=== PATIENT | female | born 1940 | race Caucasian/White ===

== ENCOUNTER → 2017-11-09 | Outpatient (CLI) | payer OTHER ==
--- NOTE | 2017-11-09 19:38 | CT ---
EXAMINATION TYPE: CT abdomen pelvis w con DATE OF EXAM: 11/09/2017 COMPARISON: 08/21/2016 HISTORY: LUQ PAIN. CT DLP: 1224 mGycm Automated exposure control for dose reduction was used. TECHNIQUE: Helical acquisition of images was performed from the lung bases through the pelvis. CONTRAST: Performed with Oral Contrast and with IV Contrast, patient injected with 80 mL of Visipaque 320. FINDINGS: Lung bases are clear of consolidation. There are clips from cholecystectomy. There is interposition o f the hepatic flexure of the colon. There is deformity of the stomach related to previous bariatric s urgery. There is no evidence of a splenic mass. Stomach is not dilated. There are surgical clips arou nd the stomach. There is no evidence of a pancreatic mass. There is renal cortical thinning. There is no hydronephrosis. There is a 1 cm calculus in the posterior left renal pelvis. There is a similar c alculus in the posterior right kidney. There are smaller other bilateral renal calculi. There is no r etroperitoneal adenopathy. There is no hydronephrosis. Abdominal aorta is atheromatous. There are keanu gical clips on the anterior abdominal wall. There is no evidence of an abdominal wall hernia. I see n o sign of a bowel obstruction. Oral contrast reaches the right colon. There appears to be some small bowel that is not opacified with oral contrast and this could be due to bypass surgery and gastrojeju nostomy. There is no ascites. There is no sign of free air. There is thoracolumbar kyphotic curvature with severe compression deformity of T12 vertebra. There is mild compression deformity of multiple l umbar vertebra. Abdominal aorta is atheromatous. Bladder distends smoothly. There is no sign of a pel tawana mass. There is osteopenia. There is right hip surgery. There is no free fluid in the pelvis. There is a loop of nonopacified small bowel that measures 3.2 cm. There are numerous surgical clips i n this area. IMPRESSION: THERE IS DECREASED FECAL MATERIAL COMPARED TO OLD EXAM. THERE IS A MILDLY DISTENDED SMALL BOWEL LOOP THAT MEASURES 3.2 CM AND IS NOT CHANGED COMPARED TO OLD EXAM AND PROBABLY DUE TO LOCALIZED ILEUS. EXT ENSIVE SURGERY. NONOBSTRUCTING BILATERAL RENAL CALCULI. NO EVIDENCE OF A BOWEL OBSTRUCTION. MULTIPLE LUMBAR AND THORACIC COMPRESSION FRACTURES.
== END | disposition home or self-care (01) ==
LOC: RADCTMAIN 16:38
DX: N20.0 Calculus of kidney (principal); K63.89 Other specified diseases of intestine; E75.5 Other lipid storage disorders; E78.9 Disorder of lipoprotein metabolism, unspecified; E55.9 Vitamin D deficiency, unspecified; D53.8 Other specified nutritional anemias; R10.13 Epigastric pain; R94.4 Abnormal results of kidney function studies; Z98.84 Bariatric surgery status
CPT/HCPCS: 82565; 84520; 74177; 36415; Q9967

== ENCOUNTER 2021-03-06 11:47 | Emergency (ER) | payer OTHER ==
[2021-03-06 11:54] VITALS: BP 157/73; PULSE 61; RESP 16; TEMP 98
[2021-03-06] MEDS ORDERED: TOPICAL SKIN ADHESIVE 1 EACH AMP TOPICAL ONE (12:36)
--- NOTE | 2021-03-06 12:36 | ED ---
General Adult HPI - General Chief complaint: Abdominal Pain Stated complaint: bleeding from navel Time Seen by Provider: 03/06/21 12:13 Source: patient Mode of arrival: wheelchair Limitations: no limitations - History of Present Illness Initial comments: Crystal is an 80yo F reasons to the emergency department today for evaluation of bleeding from the navel. Patient has a history of multiple previous abdominal surgeries, multiple scars, abdominal mesh under the umbilicus. Patient reports that this morning she noted some bleeding from the umbilicus. She applied gauze and came to the ER for further evaluation. Patient also notes she is here that she has a skin tear on her left london that has been there for a few days and not healing. has been cleaning out with peroxide. - Related Data Home Medications Medication Instructions Recorded Confirmed Pantoprazole Sodium 40 mg PO BID 02/09/14 03/06/21 HYDROcodone/APAP 10-325MG [[place] 1 tab PO BID 03/06/21 03/06/21 10-325] Mirabegron [Myrbetriq] 50 mg PO DAILY 03/06/21 03/06/21 Sertraline [Zoloft] 50 mg PO DAILY 03/06/21 03/06/21 Solifenacin Succinate [Vesicare] 5 mg PO DAILY 03/06/21 03/06/21 calcitrioL [Calcitriol] 0.5 mcg PO DAILY 03/06/21 03/06/21 traZODone HCL [Desyrel] 100 mg PO HS 03/06/21 03/06/21 Allergies Allergy/AdvReac Type Severity Reaction Status Date / Time No Known Allergies Allergy Verified 03/06/21 13:16 Review of Systems ROS Statement: Those systems with pertinent positive or pertinent negative responses have been documented in the HPI. ROS Other: All systems not noted in ROS Statement are negative. Past Medical History Past Medical History: Cancer, CVA/TIA, Eye Disorder, GERD/Reflux, Osteoarthritis (OA) Additional Past Medical History / Comment(s): C. difficile colitis, last treated August 2013. Last echo showed an ejection fraction of 50-55% with mild aortic stenosis. Previous morbid obesity with with previous bariatric surger ies. History of Any Multi-Drug Resistant Organisms: C-DIFF Past Surgical History: Appendectomy, Bariatric Surgery, Cholecystectomy, Heart Catheterization, Hernia Repair, Orthopedic Surgery, Tonsillectomy, Tubal Ligation Additional Past Surgical History / Comment(s): Bilateral cataract removal and lens implant, EGD with biopsy for gastritis and duodenitis, removal of melanoma from the chest. Past Anesthesia/Blood Transfusion Reactions: No Reported Reaction Past Psychological History: Depression Past Alcohol Use History: None Reported Past Drug Use History: None Reported - Past Family History Father Family Medical History: Liver Disease (Father at age 62 from consultations from alcoholism.) Mother Family Medical History: Coronary Artery Disease (CAD) (Mother at age 78 from coronary artery disease.) Daughter(s) Family Medical History: No Reported History (Patient has 1 son and 1 daughter that are both healthy.) Sister(s) Family Medical History: No Reported History (Patient had total of 9 sisters and one stepbrother. She denies diabetes, strokes in the family.), Cancer ( from melanoma.) General Exam - General Exam Comments Initial Comments: Physical Exam GENERAL: Very thin, frail female HENT: Normocephalic, Atraumatic. EYES: PERRL, EOMI PULMONARY: Unlabored respirations. CARDIOVASCULAR: Warm well perfused extremities ABDOMEN: Multiple scars, no abdominal fat Hernia mesh palpable through thin skin Small tear at the scar at the superior surface of the umbilicus Skin tear at the 6 o'clock position of the umbilicus seems to be from patient pulling on abdominal skin attempting to view other site of bleeding SKIN: Skin tear to left london, 2cm in diameter, no active bleeding, well healing : Deferred NEUROLOGIC: Alert and oriented Normal speech MUSCULOSKELETAL: Moving all extremities with no apparent injury PSYCHIATRIC: No SI/HI Limitations: no limitations Course Vital Signs 03/06/21 11:50 Temperature 98.0 F Pulse Rate 61 Respiratory 16 Rate Blood Pressure 157/73 O2 Sat by Pulse 96 Oximetry Medical Decision Making - Medical Decision Making The patient was seen and evaluated history is obtained from patient Patient has very thin skin with multiple scars, she has a small dehiscence less than 7 mm in length and very superficial of the scar the 12 o'clock position of the umbilicus, approximately 3 mm skin tear at the 6 o'clock position, no active bleeding is noted from either The wounds were cleaned and sealed with skin glue Patient was advised that she needs to discuss with her primary care referral to wound care as she has very thin skin, no subcutaneous fat, and history of poor wound healing Patient has been expressed understanding and are agreeable with plan for discharge home at this time Disposition Clinical Impression: Skin tear Disposition: HOME SELF-CARE Condition: Stable Additional Instructions: Keep the area clean and dry Follow up with primary care doctor for referral to wound care Is patient prescribed a controlled substance at d/c from ED?: No Referrals: Alex Cramer MD [Primary Care Provider] - 1-2 days
== END 2021-03-06 13:30 | disposition home or self-care (01) ==
LOC: EC 11:47
DX: S31.115A Laceration without foreign body of abdominal wall, periumbilic region without penetration into peritoneal cavity, initial encounter (principal); K21.9 Gastro-esophageal reflux disease without esophagitis; R54 Age-related physical debility; Z79.899 Other long term (current) drug therapy; Z90.49 Acquired absence of other specified parts of digestive tract; Z86.73 Personal history of transient ischemic attack (TIA), and cerebral infarction without residual deficits; X58.XXXA Exposure to other specified factors, initial encounter
CPT/HCPCS: 99283

== ENCOUNTER 2021-03-27 12:21 | Emergency (ER) | payer OTHER, MEDICARE ==
[2021-03-27 12:42] VITALS: RESP 18
[2021-03-27] MEDS ORDERED: PANTOPRAZOLE 40 MG/10 ML VIAL IVP STA (13:41)
[2021-03-27] MEDS ORDERED: SODIUM CHLORIDE 0.9% 1,000 ML IV STA (13:41)
[2021-03-27] MEDS ORDERED: MORPHINE SULFATE 4 MG/ML SYRINGE IV STA (13:41)
--- NOTE | 2021-03-27 13:55 | ED ---
General Adult HPI - General Chief complaint: Back Pain/Injury Stated complaint: Fall/leg/back pain Time Seen by Provider: 03/27/21 12:46 Source: patient, RN notes reviewed Mode of arrival: wheelchair Limitations: physical limitation - History of Present Illness Initial comments: Patient is a pleasant 80-year-old female presenting to the emergency department following a fall. Incident occurred around 5 or 6 days ago. Patient was switching her Walker's when she got up and fell down. Patient mostly complains of left knee discomfort. Patient is ambulatory with pain. No history of chronic knee problems. Patient also is having some discomfort of her abdomen that seems to be radiating towards the right and back. Abdominal discomfort was not present on first however has been getting worse over the past couple of days. No head injury or loss of consciousness. - Related Data Home Medications Medication Instructions Recorded Confirmed Pantoprazole Sodium 40 mg PO BID 02/09/14 03/27/21 HYDROcodone/APAP 10-325MG [[place] 1 tab PO BID 03/06/21 03/27/21 10-325] Mirabegron [Myrbetriq] 50 mg PO DAILY 03/06/21 03/27/21 Sertraline [Zoloft] 50 mg PO DAILY 03/06/21 03/27/21 Solifenacin Succinate [Vesicare] 5 mg PO DAILY 03/06/21 03/27/21 calcitrioL [Calcitriol] 0.5 mcg PO DAILY 03/06/21 03/27/21 traZODone HCL [Desyrel] 100 mg PO HS 03/06/21 03/27/21 Dorzolamide-Timol 2.23%/0.68% 1 drop BOTH EYES BID 03/27/21 03/27/21 [Cosopt] Ofloxacin 0.3% Ophth Soln [Ocuflox 1 drops BOTH EYES BID 03/27/21 03/27/21 Ophth Soln] cycloSPORINE [Restasis] 1 drop BOTH EYES BID 03/27/21 03/27/21 Previous Rx's Medication Instructions Recorded Nitrofurantoin Monohyd/M-Cryst 100 mg PO Q12HR #20 cap 03/27/21 [Macrobid] Allergies Allergy/AdvReac Type Severity Reaction Status Date / Time No Known Allergies Allergy Verified 03/27/21 13:57 Review of Systems ROS Statement: Those systems with pertinent positive or pertinent negative responses have been documented in the HPI. ROS Other: All systems not noted in ROS Statement are negative. Constitutional: Denies: fever Eyes: Denies: eye pain ENT: Denies: ear pain Respiratory: Denies: cough Cardiovascular: Denies: chest pain Endocrine: Denies: fatigue Gastrointestinal: Reports: as per HPI Genitourinary: Denies: dysuria Musculoskeletal: Reports: as per HPI Skin: Denies: rash Neurological: Denies: weakness Past Medical History Past Medical History: Cancer, CVA/TIA, Eye Disorder, GERD/Reflux, Osteoarthritis (OA) Additional Past Medical History / Comment(s): C. difficile colitis, last treated August 2013. Last echo showed an ejection fraction of 50-55% with mild aortic stenosis. Previous morbid obesity with with previous bariatric surgeries. History of Any Multi-Drug Resistant Organisms: C-DIFF Past Surgical History: Appendectomy, Bariatric Surgery, Cholecystectomy, Heart Catheterization, Hernia Repair, Orthopedic Surgery, Tonsillectomy, Tubal Ligation Additional Past Surgical History / Comment(s): Bilateral cataract removal and lens implant, EGD with biopsy for gastritis and duodenitis, removal of melanoma from the chest. Past Anesthesia/Blood Transfusion Reactions: No Reported Reaction Past Psychological History: Depression Smoking Status: Never smoker Past Alcohol Use History: None Reported Past Drug Use History: None Reported - Past Family History Father Family Medical History: Liver Disease (Father at age 62 from consultations from alcoholism.) Mother Family Medical History: Coronary Artery Disease (CAD) (Mother at age 78 from coronary artery disease.) Daughter(s) Family Medical History: No Reported History (Patient has 1 son and 1 daughter that are both healthy.) Sister(s) Family Medical History: No Reported History (Patient had total of 9 sisters and one stepbrother. She denies diabetes, strokes in the family.), Cancer ( from melanoma.) General Exam Limitations: physical limitation General appearance: alert, in no apparent distress Head exam: Present: atraumatic Eye exam: Present: normal appearance Neck exam: Present: normal inspection Respiratory exam: Present: normal lung sounds bilaterally Cardiovascular Exam: Present: regular rate, normal rhythm GI/Abdominal exam: Present: soft, tenderness (Mild diffuse tenderness). Absent: distended Extremities exam: Present: tenderness (Left knee with tenderness near the tibial plateau. No significant swelling. Distally the extremity is neurovascular intact.) Back exam: Present: normal inspection. Absent: tenderness, vertebral tenderness Neurological exam: Present: alert. Absent: motor sensory deficit Psychiatric exam: Present: normal affect, normal mood Skin exam: Present: normal color Course Vital Signs 03/27/21 03/27/21 03/27/21 12:39 14:00 15:00 Temperature 98.3 F Pulse Rate 68 57 L 56 L Respiratory 18 18 18 Rate Blood Pressure 143/79 145/68 145/68 O2 Sat by Pulse 99 98 99 Oximetry EKG Findings - EKG Comments: EKG Findings:: Size pericardial with a rate of 59. ME 188. QRS 112. QT 4:30. QTC 425. Left axis. Left anterior fascicular block. No acute ST change. Medical Decision Making - Medical Decision Making Patient reevaluated and resting comfortably in bed. Patient and family updated on results and need for follow-up. - Lab Data Result diagrams: 03/27/21 13:59 03/27/21 13:59 Lab Results 03/27/21 03/27/21 03/27/21 Range/Units 13:59 13:59 13:59 WBC 6.1 (3.8-10.6) k/uL RBC 2.92 L (3.80-5.40) m/uL Hgb 10.0 L (11.4-16.0) gm/dL Hct 30.7 L (34.0-46.0) % MCV 105.0 H (80.0-100.0) fL MCH 34.2 (25.0-35.0) pg MCHC 32.6 (31.0-37.0) g/dL RDW 14.6 (11.5-15.5) % Plt Count 151 (150-450) k/uL MPV 7.4 Neutrophils % 63 % Lymphocytes % 25 % Monocytes % 8 % Eosinophils % 2 % Basophils % 0 % Neutrophils # 3.8 (1.3-7.7) k/uL Lymphocytes # 1.5 (1.0-4.8) k/uL Monocytes # 0.5 (0-1.0) k/uL Eosinophils # 0.1 (0-0.7) k/uL Basophils # 0.0 (0-0.2) k/uL Hypochromasia Slight Macrocytosis Moderate PT 9.9 (9.0-12.0) sec INR 0.9 (<1.2) APTT 23.9 (22.0-30.0) sec Sodium (137-145) mmol/L Potassium (3.5-5.1) mmol/L Chloride (98-107) mmol/L Carbon Dioxide (22-30) mmol/L Anion Gap mmol/L BUN (7-17) mg/dL Creatinine (0.52-1.04) mg/dL Est GFR (CKD-EPI)AfAm (>60 ml/min/1.73 sqM) Est GFR (CKD-EPI)NonAf (>60 ml/min/1.73 sqM) Glucose (74-99) mg/dL Calcium (8.4-10.2) mg/dL Total Bilirubin (0.2-1.3) mg/dL AST (14-36) U/L ALT (4-34) U/L Alkaline Phosphatase (38-126) U/L Total Protein (6.3-8.2) g/dL Albumin (3.5-5.0) g/dL Amylase (30-110) U/L Lipase (23-300) U/L Urine Color Yellow Urine Appearance Cloudy H (Clear) Urine pH 5.5 (5.0-8.0) Ur Specific [place] 1.023 (1.001-1.035) Urine Protein 1+ H (Negative) Urine Glucose (UA) Negative (Negative) Urine Ketones Negative (Negative) Urine Blood Trace H (Negative) Urine Nitrite Positive H (Negative) Urine Bilirubin Negative (Negative) Urine Urobilinogen <2.0 (<2.0) mg/dL Ur Leukocyte Esterase Large H (Negative) Urine RBC 8 H (0-5) /hpf Urine WBC >182 H (0-5) /hpf Urine WBC Clumps Few H (None) /hpf Ur Squamous Epith Cells 1 (0-4) /hpf Urine Bacteria Few H (None) /hpf Hyaline Casts 1 (0-2) /lpf Urine Mucus Rare H (None) /hpf 03/27/21 Range/Units 13:59 WBC (3.8-10.6) k/uL RBC (3.80-5.40) m/uL Hgb (11.4-16.0) gm/dL Hct (34.0-46.0) % MCV (80.0-100.0) fL MCH (25.0-35.0) pg MCHC (31.0-37.0) g/dL RDW (11.5-15.5) % Plt Count (150-450) k/uL MPV Neutrophils % % Lymphocytes % % Monocytes % % Eosinophils % % Basophils % % Neutrophils # (1.3-7.7) k/uL Lymphocytes # (1.0-4.8) k/uL Monocytes # (0-1.0) k/uL Eosinophils # (0-0.7) k/uL Basophils # (0-0.2) k/uL Hypochromasia Macrocytosis PT (9.0-12.0) sec INR (<1.2) APTT (22.0-30.0) sec Sodium 138 (137-145) mmol/L Potassium 4.3 (3.5-5.1) mmol/L Chloride 110 H (98-107) mmol/L Carbon Dioxide 21 L (22-30) mmol/L Anion Gap 7 mmol/L BUN 27 H (7-17) mg/dL Creatinine 1.11 H (0.52-1.04) mg/dL Est GFR (CKD-EPI)AfAm 54 (>60 ml/min/1.73 sqM) Est GFR (CKD-EPI)NonAf 47 (>60 ml/min/1.73 sqM) Glucose 91 (74-99) mg/dL Calcium 8.5 (8.4-10.2) mg/dL Total Bilirubin 0.1 L (0.2-1.3) mg/dL AST 26 (14-36) U/L ALT 10 (4-34) U/L Alkaline Phosphatase 96 (38-126) U/L Total Protein 5.8 L (6.3-8.2) g/dL Albumin 3.2 L (3.5-5.0) g/dL Amylase 87 (30-110) U/L Lipase 164 (23-300) U/L Urine Color Urine Appearance (Clear) Urine pH (5.0-8.0) Ur Specific [place] (1.001-1.035) Urine Protein (Negative) Urine Glucose (UA) (Negative) Urine Ketones (Negative) Urine Blood (Negative) Urine Nitrite (Negative) Urine Bilirubin (Negative) Urine Urobilinogen (<2.0) mg/dL Ur Leukocyte Esterase (Negative) Urine RBC (0-5) /hpf Urine WBC (0-5) /hpf Urine WBC Clumps (None) /hpf Ur Squamous Epith Cells (0-4) /hpf Urine Bacteria (None) /hpf Hyaline Casts (0-2) /lpf Urine Mucus (None) /hpf - Radiology Data Radiology results: report reviewed (Computed tomography scan does not show acute manic abnormality), image reviewed (The x-ray shows no acute traumatic injury. Previous trauma.) Disposition Clinical Impression: Fall, UTI (urinary tract infection) Disposition: HOME SELF-CARE Condition: Stable Instructions (If sedation given, give patient instructions): Fall Prevention for Older Adults (ED), Urinary Tract Infection in Women (ED), Knee Pain (ED) Additional Instructions: Prescription for antibiotics has been sent to pharmacy. Use your knee brace as needed. Return for increased pain, weakness, fevers, vomiting, worsening symptoms or any other concerns. Prescriptions: Nitrofurantoin Monohyd/M-Cryst [Macrobid] 100 mg PO Q12HR #20 cap Is patient prescribed a controlled substance at d/c from ED?: No Referrals: Alex Cramer MD [Primary Care Provider] - 1-2 days Time of Disposition: 15:58
[2021-03-27 14:10] LABS: Basophils % (A) 0 %; Eosinophils # (A) 0.1 k/uL (0-0.7); Eosinophils % (A) 2 %; HCT 30.7 % (34.0-46.0); Hypochromasia Slight; Lymphocytes # (A) 1.5 k/uL (1.0-4.8); Lymphocytes % (A) 25 %; MCH 34.2 pg (25.0-35.0); MCHC 32.6 g/dL (31.0-37.0); Macrocytosis Moderate; Mean Platelet Volume 7.4; Monocytes # (A) 0.5 k/uL (0-1.0); Monocytes % (A) 8 %; Neutrophils # (A) 3.8 k/uL (1.3-7.7); Neutrophils % (A) 63 %; Platelet Count 151 k/uL (150-450); RBC 2.92 m/uL (3.80-5.40); RDW 14.6 % (11.5-15.5); WBC 6.1 k/uL (3.8-10.6)
[2021-03-27 14:19] LABS: Albumin 3.2 g/dL (3.5-5.0); Calcium 8.5 mg/dL (8.4-10.2); Potassium 4.3 mmol/L (3.5-5.1); Total Bilirubin 0.1 mg/dL (0.2-1.3); Total Protein 5.8 g/dL (6.3-8.2)
[2021-03-27 14:23] LABS: INR 0.9 (<1.2); Partial Thromboplastin Time 23.9 sec (22.0-30.0); Prothrombin Time 9.9 sec (9.0-12.0)
--- NOTE | 2021-03-27 14:46 | XR ---
Left knee HISTORY: Trauma 5days prior and pain 3 views the left knee, comparison prior exam 10/12/2010 Bone mineralization is reduced which may limit sensitivity. There is overlying artifact. Dense vascul ar calcifications are present. Alignment is maintained. Patient shows postop change to the distal fem ur, lateral bracket and associated screws. Osteophytic change noted in the left knee, there is margin al spurring, joint space loss in the medial compartment. Cortical irregularity of the medial metaphys is of the distal left femur is likely due to remote trauma. Spurring and joint space loss also presen t at the patellofemoral joint. No evident joint effusion. Distortion of the distal metaphysis seen on the lateral exam is likely due to remote trauma. Small staple questioned over the patella on the lat eral exam may be due to overlying wrap. IMPRESSION: Findings thought likely to be due to remote trauma. Posterior arthritis and osteoporosis. Peripheral vascular occlusive disease..
[2021-03-27 14:51] LABS: Appearance,Urine Cloudy (Clear); Bacteria,Urine Few /hpf; Bilirubin,Urine Negative (Negative); Blood,Urine Trace (Negative); Color,Urine Yellow; Glucose,Urine (UA) Negative (Negative); Hyaline Casts,Urine 1 /lpf (0-2); Ketones,Urine Negative (Negative); Leukocyte Esterase,Urine Large (Negative); Mucus,Urine Rare /hpf; Nitrite,Urine Positive (Negative); PH, Urine 5.5 (5.0-8.0); Protein,Urine 1+ (Negative); RBC,Urine 8 /hpf (0-5); Specific Gravity,Urine 1.023 (1.001-1.035); Squamous Epithelial Cell,Urine 1 /hpf (0-4); Urobilinogen,Urine <2.0 mg/dL (<2.0); WBC,Urine >182 /hpf (0-5)
--- NOTE | 2021-03-27 15:21 | CT ---
EXAMINATION TYPE: CT abdomen pelvis w con DATE OF EXAM: 03/27/2021 COMPARISON: CT 11/09/2017 HISTORY: contusions post fall [address] DLP: 547.3 mGycm Automated exposure control for dose reduction was used. TECHNIQUE: Helical acquisition of images from the lung bases through the pelvis have been completed. CONTRAST: Performed without Oral Contrast and with IV Contrast, patient injected with 80 mL of Isovue 300. FINDINGS: Metallic density present at the mitral annulus level, there are coronary artery calcificati ons. Postop changes are again noted within the abdomen. Multiple surgical clips are present along the anterior abdominal wall and within the abdomen, at the level the stomach. LUNG BASES: There is a small right pleural effusion greater than left, some associated atelectasis, r ight hemidiaphragm shows eventration change as on prior. AORTA: No significant abnormality is appreciated. LIVER/GB: Patient is post cholecystectomy, there is prominent intrahepatic biliary ducts which were n oted on prior Colonic interposition noted anterior to the liver similar to prior. PANCREAS: No significant abnormality is seen. SPLEEN: No significant abnormality is seen. ADRENALS: No significant abnormality is seen. KIDNEYS: Previously noted left renal pelvic calcification is noted measuring now 2 cm, additional ulices cification is present measuring 15 cm which is developed in the interval, no evident obstruction, mul tiple calcifications are present along the right renal collection system which have progressed in the interval, largest measures approximately 1 cm in greatest dimension. REPRODUCTIVE ORGANS: No significant double change is seen BOWEL: There are fluid-filled loops of bowel present. Some high dense material is present within jenny e of the bowel loops, some postop changes are present. Retained stool present within the colon. No ev ident bowel obstruction. FREE AIR: No Free Air visible. ASCITES: None visible. PELVIC ADENOPATHY: None visualized. RETROPERITONEAL ADENOPATHY: No Retroperitoneal Adenopathy visible. URINARY BLADDER: No significant abnormality is seen. OSSEOUS STRUCTURES: Bilateral hip surgeries have been performed, there is streak artifact due to pat ient's hardware as on prior. Similar multilevel compression deformities are present in the lumbar spi ne, kyphosis centered at the marked compression deformity at T12 as on prior, some retropulsion is no polly as on prior and thought to be stable. IMPRESSION: NO ACUTE ABNORMALITIES EVIDENT. EXTENSIVE SURGICAL CHANGE. LEFT-SIDED RENAL PELVIC CALCIFICATIONS. ST ABLE BONE FINDINGS.
[2021-03-27] MEDS ORDERED: ACET/COD 300 MG/30 MG STARTER PACK 6 TAB BTL PO STA (15:57)
[2021-03-27 16:30] VITALS: BP 128/65; PULSE 59; TEMP 98.2
== END 2021-03-27 16:15 | disposition home or self-care (01) ==
LOC: EC 12:21
DX: N39.0 Urinary tract infection, site not specified (principal); M54.9 Dorsalgia, unspecified; M25.562 Pain in left knee; K21.9 Gastro-esophageal reflux disease without esophagitis; Z79.899 Other long term (current) drug therapy
CPT/HCPCS: 96374 ×2; 99285 ×2; 96375 ×2; 96361 ×2; 36415; 93005; 80053; 82150; 83690; 85025; 85610; 85730; 81001; 87086; 73562; 74177; J2270; C9113; Q9967; 87077; 87186

== ENCOUNTER → 2021-10-02 | Outpatient (CLI) | payer OTHER ==
--- NOTE | 2021-10-02 14:46 | CT ---
EXAMINATION TYPE: CT abdomen pelvis wo con DATE OF EXAM: 10/02/2021 COMPARISON: CT 03/27/2021 HISTORY: Incontinence and hematuria. CT DLP: 577.5 mGycm Automated exposure control for dose reduction was used. TECHNIQUE: Helical acquisition of images from the lung bases through the pelvis. FINDINGS: Lack of intravenous contrast could compromise sensitivity. Dense coronary artery calcificat ions, calcifications of the root of the aorta and mitral annulus are present. Multiple surgical clips are present within the abdomen, there is been bowel surgery performed LUNG BASES: There is a left pleural effusion greater than right with associated atelectasis, left eff usion has developed in the interval. AORTA: There are dense calcifications present within the aorta as well as mesenteric vessels possibl y due to underlying renal failure, correlate. LIVER/GB: No significant change is appreciated, patient is post cholecystectomy. PANCREAS: No significant abnormality is seen. SPLEEN: No significant abnormality is seen. ADRENALS: No significant abnormality is seen. KIDNEYS: There are bilateral renal calculi, at the lower pole the left kidney there is a nonobstructi ve calculus which measures 13 mm x 19 mm, within the renal pelvis there is a calcification measuring 2 cm x 2.5 cm. The right kidney shows multiple calculi, the upper pole there is a calcification measu ring 7 mm, midpole calcification measures 11 mm as on prior posteriorly, more anteriorly there is a c alcification measuring 6 mm, there is no ureteral calculus present bilaterally REPRODUCTIVE ORGANS: No significant change is seen. URINARY BLADDER: Thickened wall may be due to cystitis or lack of distention, correlate BOWEL: No significant abnormality is seen. FREE AIR: No Free Air is visible. ASCITES: None visible. PELVIC ADENOPATHY: None visualized. RETROPERITONEAL ADENOPATHY: No Retroperitoneal Adenopathy visible. OSSEOUS STRUCTURES: Multiple vertebral compression fractures are present, there is a kyphosis center ed at T12 due to the extensive anterior wedging and loss of vertebral body height, retropulsion appea rs stable. Postop change is noted to the hips bilaterally causing some streak artifact, bone is demin eralized. Old sternal fracture is suspected. IMPRESSION: BILATERAL NEPHROLITHIASIS. CORONARY ARTERY DISEASE AND INTERVAL DEVELOPMENT OF A PLEURAL EFFUSION ON THE LEFT. POSTOP CHANGES. CORRELATE TO EXCLUDE CYSTITIS, NONCONTRAST EXAM
== END | disposition home or self-care (01) ==
LOC: RADCTMAIN 10:57
PROVIDERS: ATTEND Urology
DX: N20.0 Calculus of kidney (principal); I25.10 Atherosclerotic heart disease of native coronary artery without angina pectoris; R31.1 Benign essential microscopic hematuria
CPT/HCPCS: 74176